=== PATIENT | female | born 1965 | race Hispanic/Latino ===

== ENCOUNTER 2020-01-16 23:46 | Emergency (ER) | payer SELFPAY ==
[~2020-01-16] VITALS: Ht 165.1 cm; Wt 67.1 kg
--- NOTE | 2020-01-17 00:18 | Emergency Department Note ---
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 she had COVID 19 few weeks ago and recovered from it. . Arrival Mode: Car History limited by: language barrier Location And Measurement Technician Required: Yes (ZINA helps to translate) Onset (how long ago): day(s) Radiation: Reports extremity Severity: mild Onset quality: gradual Duration (how long): day(s) Progression: waxing and waning Context: Reports recent illness Relieving factors: none Exacerbating factors: none, movement Associated symptoms: Reports denies other symptoms Treatments prior to arrival: none Past Medical/Family History Physician Review I have reviewed the patient's past medical and family history. Any updates have been documented here. Past Medical History Recent Fever: No Clinical Suspicion of Infectio: No New/Unexplained Change in Ment: No Past Medical History: None Social History Smoking Cessation: Never Smoker Counseling Performed: No Physically hurt or threatened: No Family History Family history of heart diseas: No Other Any Pre-Existing Lines (PICC,: No Review of Systems Review of Systems Constitutional: Reports no symptoms EENTM: Reports no symptoms Cardiovascular: Reports as per HPI Respiratory: Reports no symptoms Gastrointestinal: Reports no symptoms Genitourinary: Reports no symptoms Musculoskeletal: Reports no symptoms Integumentary: Reports no symptoms Neurological: Reports no symptoms Psychological: Reports no symptoms Endocrine: Reports no symptoms Hematological/Lymphatic: Reports no symptoms Physical Exam Related Data Allergies: Coded Allergies: tramadol (Verified Allergy, Unknown, 01/17/20) Physical Exam CONSTITUTIONAL Constitutional: Present well-developed, Present well-nourished HENT HENT: Present normocephalic, Present atraumatic, Present oropharynx clear/moist, Present nose normal HENT L/R: Present left ext ear normal, Present right ext ear normal EYES Eyes: Reports PERRL, Reports conjunctivae normal NECK Neck: Present ROM normal PULMONARY Pulmonary: Present effort normal, Present breath sounds normal CARDIOVASCULAR Cardiovascular: Present regular rhythm, Present heart sounds normal, Present capillary refill normal, Present normal rate GASTROINTESTINAL Abdominal: Present soft, Present nontender, Present bowel sounds normal GENITOURINARY Genitourinary: Present exam deferred SKIN Skin: Present warm, Present dry MUSCULOSKELETAL Musculoskeletal: Present ROM normal NEUROLOGICAL Neurological: Present alert, Present oriented x 3, Present no gross motor or sensory deficits PSYCHOLOGICAL Psychological: Present mood/affect normal, Present judgement normal Results Laboratory Lab results reviewed: Yes Laboratory comments Ddimer slightly high, VSS, doubt PE Imaging Imaging results reviewed: Yes Impressions WNL Procedures 12 Lead ECG Interpretation ECG Interpretation : ECG: ECG 1 Date: Jan 16, 2020 Time: 23:57 Prior ECG tracings: reviewed Rhythm: sinus rhythm ST segments normal: Yes T waves normal: Yes Clinical Impression: normal ECG Assessment & Plan Medical Decision Making MDM atypical chest pain, low risk Assessment & Plan Final Impression: (1) Chest pain, unspecified Depart Disposition: HOME, SELF-CARE Physician Attestation Provider Attestation low risk for ACS, 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
--- NOTE | 2020-01-17 00:43 | Diagnostic Imaging Report ---
EXAMINATION: CXR 2 VIEW - HOPD INDICATION: Chest pain COMPARISON: None FINDINGS: TUBES and LINES: None. LUNGS: Normal lung volumes. Lungs are clear. No consolidations. PLEURA: No pleural effusion or pneumothorax. HEART AND MEDIASTINUM: The cardiomediastinal silhouette is unremarkable. BONES AND SOFT TISSUES: No acute osseous lesion. Soft tissues are unremarkable. UPPER ABDOMEN: No free air under the diaphragm. IMPRESSION: No acute thoracic radiographic abnormality. Signed by: Reza Espinal DO on 01/17/2020 12:39 AM
[2020-01-17] MEDS ORDERED: SODIUM CHLORIDE 0.9% 1000ML 0 ML ONE (01:30)
[2020-01-17] MEDS ORDERED: DEXAMETHASONE SOD PHOS 10 MG/1 ML VIAL ONE (01:30)
[2020-01-17] MEDS ORDERED: MORPHINE SULFATE INJ 4 MG/ML INJ 1ML ONE (01:31)
[2020-01-17] MEDS ORDERED: ONDANSETRON HCL INJ 2MG/ML 2ML 2 MG/ML VIAL ONE (01:31)
[2020-01-17] MEDS ORDERED: CEFTRIAXONE SOD 1 GM VIAL ONE (01:31)
[2020-01-17] MEDS ORDERED: ACETAMINOPHEN 325 MG TAB ONE (01:58)
== END 2020-01-17 01:05 | disposition home or self-care (01) ==
LOC: FSED 01-17 00:08
DX: R07.9 Chest pain, unspecified (principal)
CPT/HCPCS: 71046; 80053; 85025; 85379; 93005; 99283; J0696; J1100; J2270; J2405; J7030